=== PATIENT | male | born 1995 | race Asian ===

== ENCOUNTER 2020-08-04 13:15 | Emergency (ER) | payer SELFPAY ==
[~2020-08-04] VITALS: Ht 180.3 cm; Wt 104.5 kg
[2020-08-04] MEDS ORDERED: INHALER IH (13:22)
[2020-08-04] MEDS ORDERED: ALBUTEROL SULFATE HFA 90 MCG/PUFF 8 GM INHALER IH ONE (14:30)
[2020-08-04 14:40] VITALS: BP 140/74
== END 2020-08-04 15:02 | disposition home or self-care (01) ==
LOC: EMS 13:42
DX: J45.909 Unspecified asthma, uncomplicated (principal)
CPT/HCPCS: 94640; J3535